=== PATIENT | male | born 1990 | race Caucasian/White ===

== ENCOUNTER 2023-08-01 12:30 | Emergency (ER) | payer BC, SELFPAY ==
--- NOTE | ~2023-08-01 | XR_ITS ---
EXAMINATION: XR knee RT min 4V DATE: 08/01/2023 13:02 INDICATION: Right knee injury. TECHNIQUE: 4 views of right knee were obtained. COMPARISON: None. FINDINGS: Bone alignment is normal. No fracture. Joint spaces are normal. No knee joint effusion. IMPRESSION: 1. Normal right knee. Reviewed, dictated and finalized at location A. STRIAL RENDERER IMPRESSION: 1. Normal right knee.
[2023-08-01 12:32] VITALS: BP 125/69; PULSE 84; RESP 18; TEMP 36.3; O2SAT 99
--- NOTE | 2023-08-01 13:32 | ED.LOWEXIN ---
HPI - Extremity Injury (Lower) General Chief Complaint: Extremity Injury, Lower Stated Complaint: R knee pain-wrestling Time Seen by Provider: 08/01/23 13:24 Source: patient Mode of arrival: ambulatory Limitations: no limitations History of Present Illness HPI Narrative: This is a 33 year old male that presents to the ER for right knee pain after an injury during . Reports pain on the lateral and posterior aspect of the knee. Reports decreased ROM due to pain. Reports pain worse with weight bearing. Denies numbness. Related Data Allergies Allergy/AdvReac Type Severity Reaction Status Date / Time No Known Allergies Allergy Verified 08/01/23 12:31 Review of Systems Review of Systems: CONSTITUTIONAL: Denies fever MUSCULOSKELETAL: Reports joint pain, and myalgia. NEUROLOGIC: Denies numbness All systems reviewed & are unremarkable except as noted in HPI and below PMFSH Past Medical History Medical History (Updated 08/01/23 @ 13:37 by Marianne Rubio PA-C) No active medical problems Social History Social History (Updated 08/01/23 @ 13:37 by Marianne Rubio PA-C) Smokeless tobacco user: chewing tobacco Exam Narrative: GENERAL: Well-appearing, well-nourished, and in no acute distress. HEAD: Normocephalic, atraumatic. EYES: EOMI. EXTREMITIES: Normal straight leg raise. Mildly decreased active ROM in the right knee due to pain. No edema or obvious deformity. Normal DP pulse. Normal sensation SKIN: Warm, dry, no rash. NEURO: No focal deficits. Alert and oriented x3. PSYCH: Normal mood and affect Course Course Emergency Course: Patient updated on his workup and agrees with plan of care Vital Signs Vital signs: Vital Signs Temperature 97.4 F L 08/01/23 12:32 Pulse Rate 84 08/01/23 12:32 Respiratory Rate 18 08/01/23 12:32 Blood Pressure 125/69 08/01/23 12:32 Pulse Oximetry 99 08/01/23 12:32 Oxygen Delivery Room Air 08/01/23 12:32 Temperature 97.4 F L 08/01/23 12:32 Pulse Rate 84 08/01/23 12:32 Respiratory Rate 18 08/01/23 12:32 Blood Pressure 125/69 08/01/23 12:32 Pulse Oximetry 99 08/01/23 12:32 Oxygen Delivery Room Air 08/01/23 12:32 Procedures Orthopedic Splinting/Casting Injury #1: Splinting/Casting Date: 08/01/23 Splinting/Casting Time: 13:46 Side: right Lower Extremity Injury Location: knee Lower Extremity Immobilizer: knee immobilizer Splint: prefabricated Pre-Formed: knee immobilizer Pre-Procedure Neuro Vascular Exam: normal Post-Procedure Neuro Vascular Exam: normal Other Orthopedic Equipment: crutches MDM - Extremity Injury (Lower) MDM Narrative Medical decision making narrative: Patient presents to the ER for right knee pain after an injury today. He is neurovascularly intact. Right knee x-ray without acute osseous abnormalities. Patient placed in a knee immobilizer and given crutches. Will be given follow up with orthopedics. He was given warnings to return to the ER Differential Diagnosis Differential diagnosis: Likely acute internal derangement of knee Imaging Data Radiologist's impression: ITS Impressions Knee X-Ray 08/01/23 13:02 IMPRESSION: 1. Normal right knee. Critical Care Time Critical Care Time Critical Care Time: No Discharge Plan Discharge Clinical Impression: Acute internal derangement of knee Qualifiers: Laterality: right Qualified Code(s): M23.91 - Unspecified internal derangement of right knee Patient Disposition: Home, Self-Care Condition: Stable Instructions: Knee Sprain (ED) Additional Instructions: Return to the ER if you experience fever, redness and swelling of your extremity, numbness or any other symptoms that are concerning to you Wear knee immobilizer and use crutches. No weight on the affected leg. Ice and elevate extremity. Pain medication as needed and directed. Follow up with orthopedics fo
== END 2023-08-01 14:26 | disposition home or self-care (01) ==
LOC: ANHED 13:53
PROVIDERS: Emergency Provider Physician Assistant
DX: M23.91 Unspecified internal derangement of right knee (principal); S89.91XA Unspecified injury of right lower leg, initial encounter; F17.220 Nicotine dependence, chewing tobacco, uncomplicated; X58.XXXA Exposure to other specified factors, initial encounter; Y93.75 Activity, martial arts
CPT/HCPCS: 73564; 99283